=== PATIENT | male | born 1980 | race Caucasian/White ===

== ENCOUNTER 2018-04-06 19:22 | Emergency (ER) | payer BC, OTHER ==
--- NOTE | 2018-04-06 20:00 | ER Document Report ---
ED Medical Screen (RME) - General Chief Complaint: Flu Symptoms Stated Complaint: FLU LIKE SYMPTOMS Time Seen by Provider: 04/06/18 19:51 Mode of Arrival: Ambulatory Information source: Patient Notes: 38-year-old male presents to ED for complaint of body aches joint pain headache sore throat and feeling terrible. 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 He states he took ibuprofen and then felt a little better so he went out fishing. He states he was only on a water a little while before he started vomiting and feeling terrible. He states he took his temperature and the highest temp today was 102. He states he has been drinking Pedialyte and taken ibuprofen for his fever but he still feels terrible. Patient is alert and oriented temperature right now is 99.1 with a pulse of 109 and a sat of 98. In the waiting room his blood pressure was 126/ 61 with a temp of 98 3 pulse of 117 respirations of 20 and a sat of 100%. Respirations are regular even unlabored and lungs are clear at this time. I have greeted and performed a rapid initial assessment of this patient. A comprehensive ED assessment and evaluation of the patient, analysis of test results and completion of medical decision making process will be conducted by an additional ED providers. - Related Data Allergies/Adverse Reactions: No Known Allergies Allergy (Unverified 04/06/18 19:26) Physical Exam - Vital signs Vitals: Temp Pulse Resp BP Pulse Ox 98.3 F 117 H 20 126/61 H 98 04/06/18 19:33 04/06/18 19:33 04/06/18 19:33 04/06/18 19:33 04/06/18 19:33 Course - Vital Signs Vital signs: Temp Pulse Resp BP Pulse Ox 98.3 F 117 H 20 126/61 H 98 04/06/18 19:33 04/06/18 19:33 04/06/18 19:33 04/06/18 19:33 04/06/18 19:33
[2018-04-06] MEDS ORDERED: ONDANSETRON HCL INJ/PF 4 MG/2 ML SDV IV ONE (20:01)
[2018-04-06] MEDS ORDERED: NORMAL SALINE 1000 ML 1,000 ML IV ONE (20:01)
[2018-04-06] MEDS ORDERED: KETOROLAC TROMETHAMINE INJ/PF 30 MG/1 ML SDV IV ONE (20:03)
--- NOTE | 2018-04-06 20:19 | ER Document Report ---
ED Flu Like - General Chief Complaint: Flu Symptoms Stated Complaint: FLU LIKE SYMPTOMS Time Seen by Provider: 04/06/18 19:51 Mode of Arrival: Ambulatory Information source: Patient - HPI Patient complains to provider of: FEVER, ST, BODYACHES Onset: Yesterday Notes: Patient is here with complaints of fever, body aches, sore throat, vomiting. Patient states that yesterday he was pretty [place] [employer] and was on the water for about 8 hours. States that he did drink some water and sweet tea. By time he got home he was feeling somewhat ill. States that he had a sore throat had some mild body aches and had a mild cough. Woke up this morning feeling somewhat worse. 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 While he was on the water he developed generalized body aches, nausea, vomiting. He states that he vomited 3-4 times. He denies any abdominal pain. States that this time he feels sore throat with fever, body aches and generalized fatigue. Complains of some intermittent headache. No neck stiffness. No blurred or loss vision. No unilateral numbness, tingling, weakness. No chest pain or shortness of breath. No rash. No dysuria or hematuria. He does report that his urine looks darker than normal. He denies any chronic medical problems. He is on no daily medications. He denies any known sick contacts. He denies any other complaints at this time. - Related Data Allergies/Adverse Reactions: No Known Allergies Allergy (Unverified 04/06/18 19:26) Past Medical History - General Information source: Patient - Social History Smoking Status: Current Every Day Smoker Family History: Reviewed & Not Pertinent Review of Systems - Review of Systems -: Yes All other systems reviewed and negative Physical Exam - Vital signs Vitals: Temp Pulse Resp BP Pulse Ox 98.3 F 117 H 20 126/61 H 98 04/06/18 19:33 04/06/18 19:33 04/06/18 19:33 04/06/18 19:33 04/06/18 19:33 - Notes Notes: GENERAL: alert, cooperative, nontoxic, no distress. HEAD: normocephalic, atraumatic EYES: conjunctiva pink without discharge, no external redness or swelling. EARS: no external swelling, no external redness, no mastoid redness, swelling, tenderness. Ear canals are clear without swelling or drainage. TMs pearly meza , no redness, no bulging, normal landmarks, no perforation. NOSE: atraumatic, no external swelling. clear rhinorrhea noted. MOUTH/THROAT: mucous membranes moist and pink, posterior pharynx without erythema, swelling, exudate. No trismus or drooling. NECK: soft, supple, full range of motion, no meningismus. CHEST: no distress, lungs clear and equal throughout. No wheezing, rales, rhonchi. CARDIAC: regular rhythm, mild tachycardia. No murmur, normal capillary refill, normal pulses. No peripheral edema noted. BACK: full range of motion, no CVA tenderness. abdo: Soft, nontender. No rebound tenderness or guarding. No mass. EXTREMITIES: full range of motion of all extremities. No redness, no swelling. NEURO: alert and oriented A&O3, no focal deficits, full range of motion of all extremities. Cranial nerves II through XII are grossly intact. PYSCH: appropriate mood, affect. Patient is cooperative. SKIN: pink, warm, dry, no rash. Course - Re-evaluation Re-evalutation: 04/07/18 00:25 Patient is nontoxic appearing with stable vitals. Is here with complaints of flulike symptoms including body aches, fever, sore throat, vomiting. This started last night. He initially was mildly tachycardic. After IV fluids and Toradol and Zofran the patient states that he feels significantly better. Rapid strep is negative. White blood cell count slightly elevated at 13. Platelet count is slightly low at 129. Electrolytes, CPK, LFTs are all unremarkable. Urinalysis shows signs of dehydration but no signs of infection. Rapid strep is negative. This point the patient likely has a viral syndrome. Potentially he could have influenza. Patient is not in the high risk treatment group according to the CDC, therefore I did not test for influenza as this would not change our treatment plan for this patient. This point the patient states he is feeling significant better. He will be discharged home with a prescription for Naprosyn and Zofran. Follow-up with his primary care doctor at the next available appointment. Follow-up sooner for increased pain, persistent vomiting, difficulty breathing or swallowing, or for any further concerns. The patient is noted to have elevated blood pressure during today's emergency department visit. The patient was informed of this finding. The patient was instructed that this may be related to pre-hypertension and requires further evaluation with a primary care provider. The patient has no hypertensive symptoms at this time. The patient's emergency department workup and current diagnosis were explained to the patient and or family. Follow-up instructions were provided. Medications if prescribed were discussed. Instructions for when to return to the emergency department including specific worrisome symptoms were discussed with the patient and/or family. 04/07/18 00:27 - Vital Signs Vital signs: Temp Pulse Resp BP Pulse Ox 98.3 F 117 H 20 126/61 H 98 04/06/18 19:33 04/06/18 19:33 04/06/18 19:33 04/06/18 19:33 04/06/18 19:33 - Laboratory Result Diagrams: 04/06/18 20:33 04/06/18 20:33 Laboratory results interpreted by me: 04/06/18 04/06/18 04/06/18 20:33 20:33 22:15 WBC 13.6 H RDW 14.1 H Plt Count 129 L Seg Neutrophils % 84.9 H Lymphocytes % 8.7 L Absolute Neutrophils 11.5 H BUN 22 H Urine Protein 30 H Urine Ketones TRACE H Urine Urobilinogen 4.0 H - Diagnostic Test Radiology reviewed: Image reviewed, Reports reviewed - No acute abnormality Discharge - Discharge Clinical Impression: Viral syndrome, Myalgia, Thrombocytopenia Vomiting Qualifiers: Vomiting type: unspecified Vomiting Intractability: non-intractable Nausea presence: with nausea Qualified Code(s): R11.2 - Nausea with vomiting, unspecified Condition: Stable Disposition: HOME, SELF-CARE Instructions: Antinausea Medication ([facility]), Vomiting ([facility]), Viral Syndrome ([facility]) , Intravenous (IV) Fluids ([facility]) Additional Instructions: Take medications as prescribed. Drink plenty of fluids. Follow-up with your doctor at the next available appointment for recheck. Your platelet count was slightly low at 129,000, this can be related to viral illnesses. Should be rechecked with your primary care doctor at some point. Follow-up sooner if you have any worsening symptoms, persistent vomiting, difficulty breathing or swelling, severe abdominal pain, or for any further concerns. Your blood pressure was elevated during today's visit. Have this rechecked with your doctor. Prescriptions: Naproxen [Naprosyn] 500 mg PO BID #20 tablet Ondansetron HCl [Zofran 4 mg Tablet] 1 - 2 tab PO Q4H PRN #10 tablet PRN Reason: Forms: Elevated Blood Pressure, Smoking Cessation Education Referrals: [facility] [Provider Group] - Follow up as needed
[2018-04-06 20:43] LABS: ABSOLUTE LYMPHOCYTES (AUTO) 1.2 10^3/uL (0.5-4.7); ABSOLUTE MONOCYTES (AUTO) 0.8 10^3/uL (0.1-1.4); ABSOLUTE NEUT (AUTO) 11.5 10^3/uL (1.7-8.2); BASOPHILS % (AUTO) 0.3 % (0-2); HEMATOCRIT 43.9 % (37.9-51.0); LYMPHOCYTES % (AUTO) 8.7 % (13-45); MEAN CORPUSCULAR HEMOGLOBIN 29.5 pg (27.0-33.4); MEAN CORPUSCULAR HGB CONC 34.1 g/dL (32.0-36.0); MEAN CORPUSCULAR VOLUME 86 fl (80-97); MONOCYTES % (AUTO) 6.1 % (3-13); PLATELET COUNT 129 10^3/uL (150-450); RED BLOOD COUNT 5.08 10^6/uL (4.35-5.55); RED CELL DISTRIBUTION WIDTH 14.1 % (11.5-14.0); SEGMENTED NEUTROPHILS % (AUTO) 84.9 % (42-78); TOTAL CELLS COUNTED % (AUTO) 100 %; WHITE BLOOD COUNT 13.6 10^3/uL (4.0-10.5)
--- NOTE | 2018-04-06 21:05 | RADIOLOGY REPORT (SQ) ---
EXAM DESCRIPTION: CHEST 2 VIEWS COMPLETED DATE/TIME: 04/06/2018 8:52 pm REASON FOR STUDY: cough fever COMPARISON: None. EXAM PARAMETERS: NUMBER OF VIEWS: two views TECHNIQUE: Digital Frontal and Lateral radiographic views of the chest acquired. RADIATION DOSE: NA LIMITATIONS: none FINDINGS: LUNGS AND PLEURA: No opacities, masses or pneumothorax. No pleural effusion. MEDIASTINUM AND HILAR STRUCTURES: No masses or contour abnormalities. HEART AND VASCULAR STRUCTURES: Heart normal size. No evidence for failure. BONES: No acute findings. HARDWARE: None in the chest. OTHER: No other significant finding. IMPRESSION: NO ACUTE RADIOGRAPHIC FINDING IN THE CHEST. TECHNICAL DOCUMENTATION: JOB ID: [id number] [employer]- All Rights Reserved Reading location - IP/workstation name: [email or web address]
[2018-04-06 21:09] LABS: ALANINE AMINOTRANSFERASE 38 U/L (21-72); ALBUMIN 4.6 g/dL (3.5-5.0); ALKALINE PHOSPHATASE 70 U/L (38-126); ANION GAP 11 (5-19); ASPARTATE AMINO TRANSFERASE 22 U/L (17-59); BILIRUBIN,DIRECT 0.2 mg/dL (0.0-0.4); BILIRUBIN,TOTAL 1.1 mg/dL (0.2-1.3); BLOOD UREA NITROGEN 22 mg/dL (7-20); CALCIUM 9.3 mg/dL (8.4-10.2); CARBON DIOXIDE 27 mmol/L (22-30); CHLORIDE 101 mmol/L (98-107); CREATINE KINASE 115 U/L (55-170); GLUCOSE 102 mg/dL (75-110); LIPASE 35.4 U/L (23-300); POTASSIUM 4.2 mmol/L (3.6-5.0); SODIUM 138.7 mmol/L (137-145); TOTAL PROTEIN 7.1 g/dL (6.3-8.2)
[2018-04-06 23:07] LABS: APPEARANCE,URINE SLIGHTLY-CLOUDY; BILIRUBIN,URINE NEGATIVE (NEGATIVE); GLUCOSE, URINE NEGATIVE (NEGATIVE); KETONES,URINE TRACE mg/dL (NEGATIVE); LEUKOCYTE ESTERASE,URINE NEGATIVE (NEGATIVE); NITRITE,URINE NEGATIVE (NEGATIVE); PROTEIN,URINE 30 mg/dL (NEGATIVE); URINE SPECIFIC GRAVITY 1.033
[2018-04-06 23:09] LABS: COLOR,URINE YELLOW
[2018-04-07 00:45] VITALS: BP 116/52
== END 2018-04-07 00:46 | disposition home or self-care (01) ==
LOC: ER 19:22
DX: B34.9 Viral infection, unspecified (principal); D69.6 Thrombocytopenia, unspecified; R11.2 Nausea with vomiting, unspecified; M79.1 Myalgia; J06.9 Acute upper respiratory infection, unspecified; R50.9 Fever, unspecified; R53.83 Other fatigue; R51 Headache; R39.89 Other symptoms and signs involving the genitourinary system; F17.200 Nicotine dependence, unspecified, uncomplicated; R00.0 Tachycardia, unspecified; R03.0 Elevated blood-pressure reading, without diagnosis of hypertension
CPT/HCPCS: 99284; 96361; 96374; 96375; 36415; 87070; 87880; 82550; 83690; 85025; 87077; 80053; 81001; 71046; J1885; J2405; J7030